=== PATIENT | female | born 1945 | race Hispanic/Latino ===

== ENCOUNTER 2021-02-01 19:49 | Inpatient (IN) | payer OTHER, MEDICARE ==
[~2021-02-01] VITALS: Ht 154.9 cm; Wt 60.8 kg
[2021-02-01] MEDS ORDERED: 0.9%NACL 1000ML 1,000 ML IV ONE (21:00)
[2021-02-01 21:47] LABS: BASOPHILS % (AUTO) 0.4 % (0.0-5.0); EOSINOPHILS % (AUTO) 1.6 % (0.0-8.0); HEMATOCRIT 27.2 % (36-48); LYMPHOCYTES % (AUTO) 27.1 % (21.0-51.0); MEAN CORPUSCULAR HEMOGLOBIN 27.5 pg (27.0-33.0); MEAN CORPUSCULAR HGB CONC 32.4 g/dL (32.0-36.0); MONOCYTES % (AUTO) 8.8 % (3.0-13.0); NEUTROPHILS % (AUTO) 61.7 % (40.0-77.0); PLATELET COUNT (AUTO) 183 K/uL (130-400); RED CELL DISTRIBUTION WIDTH 13.1 % (11.0-15.5); WHITE BLOOD COUNT (AUTO) 5.7 K/uL (4.8-10.8)
[2021-02-01 22:09] LABS: ALBUMIN 1.8 g/dL (3.5-5.0); BILIRUBIN,TOTAL 0.2 mg/dL (0.2-1.0); CREATININE 0.5 mg/dL (0.5-1.5); TOTAL PROTEIN, SERUM 4.5 g/dL (6.0-8.3)
[2021-02-01 22:12] LABS: POTASSIUM 2.3 mmol/L (3.5-5.1)
[2021-02-01] MEDS ORDERED: POTASSIUM CHLORIDE 10MEQ/100ML 10 MEQ/100 ML ML IV ONE (22:30)
[2021-02-01] MEDS ORDERED: POTASSIUM CHLORIDE 10MEQ/100ML 100 ML IV ONE (23:39)
[2021-02-01 23:59] LABS: APPEARANCE,URINE Turbid (CLEAR); BILIRUBIN,URINE Negative (NEGATIVE); COLOR,URINE Yellow (YELLOW); GLUCOSE, URINE (UA) >=1000 mg/dL (NEGATIVE); KETONES,URINE 40 mg/dL (NEGATIVE); LEUKOCYTE ESTERASE ,URINE Moderate (NEGATIVE); NITRATE,URINE Negative (NEGATIVE); OCCULT BLOOD,URINE Moderate (NEGATIVE); PROTEIN,URINE POS 2+ mg/dL (NEGATIVE)
[2021-02-02 00:13] LABS: BACTERIA,URINE Moderate /HPF (None Seen); WBC,URINE 26-50 /HPF (0-1)
[2021-02-02 00:16] LABS: YEAST,URINE BUDDING Moderate /HPF (None Seen)
[2021-02-02 00:17] LABS: SQUAMOUS EPITHELIAL CELL,UR Rare /HPF (0-2)
[2021-02-02 00:36] LABS: ABG OXYGEN SATURATION 45.8 % (95.0-99.0); BASE EXCESS,VENOUS BLOOD GAS -8.3 (-2.0-3.0); HCO3,VENOUS BLOOD GAS 17.6 (21.0-28.0); PCO2,VENOUS BLOOD GAS 38 (32-45); PH,VENOUS BLOOD GAS 7.289 (7.350-7.450)
[2021-02-02] MEDS ORDERED: NITROGLYCERIN 1GM OINT 1 INCH/1GM TD SCH (01:30)
[2021-02-02] MEDS ORDERED: ONDANSETRON 4MG INJ IV PRN (01:30)
[2021-02-02] MEDS ORDERED: MAGNESIUM 2GM PREMIX 50ML 50 ML IV PRN (01:30)
[2021-02-02] MEDS ORDERED: HYDRALAZINE 20MG/ML VIAL IV PRN (01:30)
[2021-02-02 01:57] LABS: CREATININE,URINE RANDOM 91 mg/dL (30-135); SODIUM,URINE RANDOM 62 mmol/l (40-220)
[2021-02-02] MEDS: LACTATED RINGERS 1000ML 1,000 ML IV SCH ×3 (02:34→21:42)
[2021-02-02] MEDS: CEFTRIAXONE 1G VIAL IV SCH (02:35)
[2021-02-02] MEDS ORDERED: ATOR40TA69 PO (05:24)
[2021-02-02] MEDS ORDERED: LOSA100T58 PO (05:24)
[2021-02-02] MEDS ORDERED: ASPI-1012 PO (05:24)
[2021-02-02] MEDS ORDERED: EMPA25TA PO (05:24)
[2021-02-02] MEDS ORDERED: FAMO20TA8 PO (05:24)
[2021-02-02] MEDS ORDERED: SERT-438 PO (05:24)
[2021-02-02] MEDS ORDERED: LEVO50CA4 PO (05:24)
[2021-02-02] MEDS ORDERED: CLOP75TA32 PO (05:24)
[2021-02-02] MEDS ORDERED: HYDR-3420 PO (05:24)
[2021-02-02 06:51] LABS: CREATININE 0.8 mg/dL (0.5-1.5); MAGNESIUM 2.1 mg/dL (1.80-2.40); PHOSPHORUS 3.3 mg/dL (2.5-4.9); POTASSIUM 3.4 mmol/L (3.5-5.1)
[2021-02-02 07:21] LABS: BASOPHILS % (AUTO) 0.5 % (0.0-5.0); LYMPHOCYTES % (AUTO) 19.4 % (21.0-51.0); MEAN CORPUSCULAR HEMOGLOBIN 26.8 pg (27.0-33.0); MEAN CORPUSCULAR HGB CONC 32.3 g/dL (32.0-36.0); MONOCYTES % (AUTO) 5.6 % (3.0-13.0); NEUTROPHILS % (AUTO) 73.3 % (40.0-77.0); PLATELET COUNT (AUTO) 299 K/uL (130-400); RED CELL DISTRIBUTION WIDTH 13.1 % (11.0-15.5); WHITE BLOOD COUNT (AUTO) 10.5 K/uL (4.8-10.8)
[2021-02-02] MEDS ORDERED: ASPIRIN 325MG TAB PO ONE (07:30)
[2021-02-02] MEDS ORDERED: ATORVASTATIN 40 MG TABLET PO ONE (07:30)
[2021-02-02] MEDS ORDERED: KCL 20 MEQ ERTAB PO ONE (07:30)
[2021-02-02 07:36] LABS: HEMOGLOBIN A1C 8.1 % (4.0-6.0)
[2021-02-02 08:20] VITALS: BP 192/92
[2021-02-02 08:23] LABS: RETICULOCYTE % (AUTO) 0.75 % (0.42-2.23)
[2021-02-02 08:32] LABS: % IRON SATURATION 10.5 % (22-44)
[2021-02-02] MEDS ORDERED: ENOXAPARIN SODIUM 40 MG/0.4 ML SYRINGE SQ SCH (09:00)
[2021-02-02] MEDS: FAMOTIDINE 20MG VIAL IV SCH (09:51)
[2021-02-02] MEDS: LISINOPRIL 10 MG TABLET PO SCH ×2 (09:51→09:53)
[2021-02-02] MEDS: METOPROLOL SUCCINATE 50 MG TAB.SR.24H PO SCH ×2 (09:51→09:53)
[2021-02-02] MEDS: NITROGLYCERIN 1GM OINT 1 INCH/1GM TD SCH ×2 (09:52→18:44)
[2021-02-02 11:06] LABS: POTASSIUM 3.9 mmol/L (3.5-5.1)
[2021-02-02 11:25] VITALS: BP 138/87
[2021-02-02] MEDS: INSULIN HUMULIN R 100 UNIT/ML 3ML SQ SCH ×2 (12:00→18:00)
[2021-02-02] MEDS: KCL 20 MEQ ERTAB PO SCH (13:30)
[2021-02-02] MEDS: LORAZEPAM 2 MG/ML 1 ML VIAL IVP SCH (13:30)
[2021-02-02] MEDS ORDERED: ASPIRIN 325MG TAB PO SCH (13:30)
[2021-02-02] MEDS: ATORVASTATIN 40 MG TABLET PO SCH ×2 (13:30→21:00)
[2021-02-02 15:10] VITALS: BP 91/60
[2021-02-02] MEDS: LIDOCAINE HCL-MPF 1% 2ML VIAL IV PRN ×2 (16:04→16:05)
[2021-02-02] MEDS: POTASSIUM CHLORIDE 20MEQ/100ML 100 ML IV PRN (16:04)
[2021-02-02 17:23] LABS: CREATININE 1.2 mg/dL (0.5-1.5); MAGNESIUM 2.4 mg/dL (1.80-2.40); POTASSIUM 4.3 mmol/L (3.5-5.1)
[2021-02-02 19:53] VITALS: BP 108/56
[2021-02-02 21:12] LABS: CREATININE 1.1 mg/dL (0.5-1.5); POTASSIUM 4.2 mmol/L (3.5-5.1)
[2021-02-02 23:53] VITALS: BP 109/58
[2021-02-03] VITALS (7 sets, daily range): BP systolic 129–193; BP diastolic 63–92
[2021-02-03] MEDS: CEFTRIAXONE 1G VIAL IV SCH (02:53)
[2021-02-03] MEDS: NITROGLYCERIN 1GM OINT 1 INCH/1GM TD SCH ×3 (02:54→17:43)
[2021-02-03] MEDS: INSULIN HUMULIN R 100 UNIT/ML 3ML SQ SCH ×5 (06:00→23:24)
[2021-02-03] MEDS: LACTATED RINGERS 1000ML 1,000 ML IV SCH ×3 (06:42→22:54)
[2021-02-03 08:49] LABS: BASOPHILS % (AUTO) 0.3 % (0.0-5.0); HEMATOCRIT 34.3 % (36-48); LYMPHOCYTES % (AUTO) 25.6 % (21.0-51.0); MEAN CORPUSCULAR HEMOGLOBIN 26.9 pg (27.0-33.0); MEAN CORPUSCULAR HGB CONC 32.7 g/dL (32.0-36.0); MEAN CORPUSCULAR VOLUME 82.5 fL (79-99); MONOCYTES % (AUTO) 7.4 % (3.0-13.0); NEUTROPHILS % (AUTO) 64.5 % (40.0-77.0); PLATELET COUNT (AUTO) 273 K/uL (130-400); RED BLOOD CELL COUNT(AUTO) 4.16 MIL/uL (4.00-5.50); RED CELL DISTRIBUTION WIDTH 13.3 % (11.0-15.5); WHITE BLOOD COUNT (AUTO) 8.6 K/uL (4.8-10.8)
[2021-02-03 08:58] LABS: CREATININE 0.9 mg/dL (0.5-1.5); POTASSIUM 3.9 mmol/L (3.5-5.1)
[2021-02-03] MEDS: LORAZEPAM 2 MG/ML 1 ML VIAL IVP SCH ×2 (10:16→16:49)
[2021-02-03] MEDS: ASPIRIN 81MG CHEW TAB PO SCH (10:27)
[2021-02-03] MEDS: LISINOPRIL 5 MG TABLET PO SCH (10:27)
[2021-02-03] MEDS: METOPROLOL SUCCINATE 50 MG TAB.SR.24H PO SCH (10:28)
[2021-02-03] MEDS: FAMOTIDINE 20MG VIAL IV SCH (10:29)
[2021-02-03] MEDS ORDERED: CLOPIDOGREL 75MG TAB PO ONE (11:00)
[2021-02-03] MEDS: CLOPIDOGREL 75MG TAB PO SCH (13:00)
[2021-02-03] MEDS: ATORVASTATIN 40 MG TABLET PO SCH ×2 (13:30→21:28)
[2021-02-03] MEDS: KCL 20 MEQ ERTAB PO SCH (13:30)
[2021-02-03] MEDS: HYDRALAZINE 20MG/ML VIAL IV PRN ×2 (16:51→23:23)
[2021-02-03] MEDS ORDERED: IOHEXOL 350 MG/ML 100ML INFUS..BTL IV ONE (17:52)
[2021-02-04] MEDS ORDERED: LORAZEPAM 2 MG/ML 1 ML VIAL IVP ONE (00:30)
[2021-02-04] MEDS: CEFTRIAXONE 1G VIAL IV SCH (01:28)
[2021-02-04] MEDS: NITROGLYCERIN 1GM OINT 1 INCH/1GM TD SCH ×3 (01:29→17:30)
[2021-02-04 03:43] VITALS: BP 121/59
[2021-02-04] MEDS: INSULIN HUMULIN R 100 UNIT/ML 3ML SQ SCH ×3 (05:54→18:00)
[2021-02-04 06:25] LABS: BASOPHILS % (AUTO) 0.5 % (0.0-5.0); EOSINOPHILS % (AUTO) 0.9 % (0.0-8.0); MEAN CORPUSCULAR HEMOGLOBIN 26.7 pg (27.0-33.0); MEAN CORPUSCULAR HGB CONC 32.5 g/dL (32.0-36.0); MONOCYTES % (AUTO) 6.6 % (3.0-13.0); NEUTROPHILS % (AUTO) 73.8 % (40.0-77.0); PLATELET COUNT (AUTO) 299 K/uL (130-400); RED BLOOD CELL COUNT(AUTO) 4.39 MIL/uL (4.00-5.50); RED CELL DISTRIBUTION WIDTH 13.2 % (11.0-15.5); WHITE BLOOD COUNT (AUTO) 10.4 K/uL (4.8-10.8)
[2021-02-04 06:52] LABS: CREATININE 0.8 mg/dL (0.5-1.5); POTASSIUM 3.5 mmol/L (3.5-5.1)
[2021-02-04 07:25] VITALS: BP 153/76
[2021-02-04] MEDS: FAMOTIDINE 20MG VIAL IV SCH (08:33)
[2021-02-04] MEDS: METOPROLOL SUCCINATE 50 MG TAB.SR.24H PO SCH (08:36)
[2021-02-04] MEDS: CLOPIDOGREL 75MG TAB PO SCH (08:36)
[2021-02-04] MEDS: ASPIRIN 81MG CHEW TAB PO SCH (08:38)
[2021-02-04] MEDS: LISINOPRIL 5 MG TABLET PO SCH (08:49)
[2021-02-04] MEDS: LORAZEPAM 0.5 MG TABLET PO SCH (09:00)
[2021-02-04] MEDS ORDERED: MEMANTINE HCL 5 MG TABLET PO SCH (10:00)
[2021-02-04] MEDS ORDERED: FLUOXETINE HCL 10 MG CAPSULE PO SCH (10:00)
[2021-02-04 11:25] VITALS: BP 91/33
[2021-02-04] MEDS: FLUOXETINE HCL 10 MG CAPSULE PO SCH (12:28)
[2021-02-04] MEDS: MEMANTINE HCL 5 MG TABLET PO SCH (12:29)
[2021-02-04] MEDS: LACTATED RINGERS 1000ML 1,000 ML IV SCH (14:57)
[2021-02-04 15:25] VITALS: BP 141/62
[2021-02-04 20:13] VITALS: BP 166/79
[2021-02-04] MEDS ORDERED: APIXABAN 5 MG TABLET PO SCH (21:00)
[2021-02-04] MEDS: ATORVASTATIN 40 MG TABLET PO SCH (21:49)
[2021-02-04 23:53] VITALS: BP 166/82
[2021-02-05] MEDS: NITROGLYCERIN 1GM OINT 1 INCH/1GM TD SCH ×3 (02:33→18:21)
[2021-02-05] MEDS: CEFTRIAXONE 1G VIAL IV SCH (02:33)
[2021-02-05 04:05] VITALS: BP 162/86
[2021-02-05] MEDS ORDERED: HEPARIN 25,000 UNITS/250ML D5W 250 ML IV SCH (05:30)
[2021-02-05] MEDS ORDERED: HEPARIN 5,000 UNIT VIAL SQ PRN (05:30)
[2021-02-05 05:32] VITALS: BP 159/78
[2021-02-05] MEDS: INSULIN HUMULIN R 100 UNIT/ML 3ML SQ SCH ×5 (06:00→23:57)
[2021-02-05 06:37] LABS: CREATININE 0.8 mg/dL (0.5-1.5); POTASSIUM 3.1 mmol/L (3.5-5.1)
[2021-02-05 06:41] LABS: INR 1.06 (0.85-1.15); PROTHROMBIN TIME 11.5 SEC (9.6-11.6)
[2021-02-05 06:42] LABS: PARTIAL THROMBOPLASTIN TIME 28.8 SEC (26.3-35.5)
[2021-02-05 07:44] VITALS: BP 171/77
[2021-02-05 08:16] LABS: MAGNESIUM 1.4 mg/dL (1.80-2.40)
[2021-02-05] MEDS: LORAZEPAM 0.5 MG TABLET PO SCH (09:00)
[2021-02-05] MEDS: LISINOPRIL 10 MG TABLET PO SCH (09:30)
[2021-02-05 10:48] VITALS: BP 163/88
[2021-02-05] MEDS: FAMOTIDINE 20MG VIAL IV SCH (10:56)
[2021-02-05 12:17] LABS: INR 1.11 (0.85-1.15)
[2021-02-05 13:03] LABS: PARTIAL THROMBOPLASTIN TIME 116.3 SEC (26.3-35.5)
[2021-02-05] MEDS: LORAZEPAM 2 MG/ML 1 ML VIAL IVP SCH (13:30)
[2021-02-05] MEDS: CLOPIDOGREL 75MG TAB PO SCH (13:42)
[2021-02-05] MEDS: METOPROLOL SUCCINATE 50 MG TAB.SR.24H PO SCH (13:42)
[2021-02-05] MEDS: ASPIRIN 81 MG EC TAB PO SCH (13:42)
[2021-02-05] MEDS: MEMANTINE HCL 5 MG TABLET PO SCH (13:42)
[2021-02-05] MEDS: FLUOXETINE HCL 10 MG CAPSULE PO SCH (13:43)
[2021-02-05 15:51] VITALS: BP 166/88
[2021-02-05 20:00] VITALS: BP 171/77
[2021-02-05] MEDS: ATORVASTATIN 40 MG TABLET PO SCH (20:39)
[2021-02-06] VITALS: BP 160/72
[2021-02-06] MEDS: CEFTRIAXONE 1G VIAL IV SCH (00:47)
[2021-02-06] MEDS: NITROGLYCERIN 1GM OINT 1 INCH/1GM TD SCH ×3 (00:47→17:05)
[2021-02-06 01:13] LABS: HEMATOCRIT 33.5 % (36-48); MEAN CORPUSCULAR HEMOGLOBIN 26.7 pg (27.0-33.0); MEAN CORPUSCULAR HGB CONC 33.4 g/dL (32.0-36.0); MEAN CORPUSCULAR VOLUME 79.8 fL (79-99); RED BLOOD CELL COUNT(AUTO) 4.2 MIL/uL (4.00-5.50)
[2021-02-06 01:19] LABS: CREATININE 0.9 mg/dL (0.5-1.5); POTASSIUM 3.2 mmol/L (3.5-5.1)
[2021-02-06 04:00] VITALS: BP 158/89
[2021-02-06] MEDS: INSULIN HUMULIN R 100 UNIT/ML 3ML SQ SCH ×3 (05:33→18:00)
[2021-02-06] MEDS ORDERED: HEPARIN 25,000 UNITS/250ML D5W 250 ML IV ONE (05:45)
[2021-02-06] MEDS: LIDOCAINE HCL-MPF 1% 2ML VIAL IV PRN (06:09)
[2021-02-06] MEDS: POTASSIUM CHLORIDE 20MEQ/100ML 100 ML IV PRN (06:10)
[2021-02-06] MEDS: LISINOPRIL 10 MG TABLET PO SCH (08:52)
[2021-02-06] MEDS: FLUOXETINE HCL 10 MG CAPSULE PO SCH (08:52)
[2021-02-06] MEDS: METOPROLOL SUCCINATE 50 MG TAB.SR.24H PO SCH (08:53)
[2021-02-06] MEDS: FAMOTIDINE 20MG VIAL IV SCH (08:53)
[2021-02-06] MEDS: CLOPIDOGREL 75MG TAB PO SCH (08:53)
[2021-02-06] MEDS: LORAZEPAM 0.5 MG TABLET PO SCH (08:53)
[2021-02-06] MEDS: MEMANTINE HCL 5 MG TABLET PO SCH (08:53)
[2021-02-06] MEDS: ASPIRIN 81 MG EC TAB PO SCH (08:53)
[2021-02-06 09:34] VITALS: BP 163/66
[2021-02-06 11:41] VITALS: BP 152/76
[2021-02-06] MEDS: LORAZEPAM 2 MG/ML 1 ML VIAL IVP SCH (13:30)
[2021-02-06 16:51] VITALS: BP 165/90
[2021-02-06 20:00] VITALS: BP 121/83
[2021-02-06] MEDS: ARIPIPRAZOLE 5 MG TABLET PO SCH (21:42)
[2021-02-06] MEDS: ATORVASTATIN 40 MG TABLET PO SCH (21:42)
[2021-02-07] VITALS (7 sets, daily range): BP systolic 132–178; BP diastolic 65–95
[2021-02-07] MEDS: INSULIN HUMULIN R 100 UNIT/ML 3ML SQ SCH ×5 (00:31→21:00)
[2021-02-07] MEDS: NITROGLYCERIN 1GM OINT 1 INCH/1GM TD SCH ×3 (01:42→17:43)
[2021-02-07] MEDS: CEFTRIAXONE 1G VIAL IV SCH (01:42)
[2021-02-07] MEDS: POTASSIUM CHLORIDE 20MEQ/100ML 100 ML IV PRN (05:45)
[2021-02-07] MEDS: LIDOCAINE HCL-MPF 1% 2ML VIAL IV PRN (05:46)
[2021-02-07] MEDS: LORAZEPAM 0.5 MG TABLET PO SCH (09:00)
[2021-02-07] MEDS: FAMOTIDINE 20MG VIAL IV SCH (09:10)
[2021-02-07] MEDS: MEMANTINE HCL 5 MG TABLET PO SCH (09:10)
[2021-02-07] MEDS: CLOPIDOGREL 75MG TAB PO SCH (09:11)
[2021-02-07] MEDS: LISINOPRIL 20 MG TABLET PO SCH (09:11)
[2021-02-07] MEDS: ASPIRIN 81 MG EC TAB PO SCH (09:11)
[2021-02-07] MEDS: FLUOXETINE HCL 20 MG CAPSULE PO SCH (09:11)
[2021-02-07] MEDS: METOPROLOL SUCCINATE 50 MG TAB.SR.24H PO SCH (09:11)
[2021-02-07] MEDS ORDERED: POLYETHYLENE GLYCOL 3350 17 GM POWD.PACK PO SCH (11:00)
[2021-02-07] MEDS: LACTULOSE 20 GM/30 ML UDCUP PO SCH ×3 (11:15→20:34)
[2021-02-07] MEDS: LORAZEPAM 2 MG/ML 1 ML VIAL IVP SCH (13:29)
[2021-02-07] MEDS: ARIPIPRAZOLE 5 MG TABLET PO SCH (20:33)
[2021-02-07] MEDS: ATORVASTATIN 40 MG TABLET PO SCH (20:33)
[2021-02-08] MEDS: CEFTRIAXONE 1G VIAL IV SCH (03:09)
[2021-02-08] MEDS: NITROGLYCERIN 1GM OINT 1 INCH/1GM TD SCH ×3 (03:09→17:27)
[2021-02-08 03:39] VITALS: BP 140/69
[2021-02-08 07:21] LABS: BASOPHILS % (AUTO) 0.4 % (0.0-5.0); EOSINOPHILS % (AUTO) 3.2 % (0.0-8.0); HEMATOCRIT 33.6 % (36-48); LYMPHOCYTES % (AUTO) 27.5 % (21.0-51.0); MEAN CORPUSCULAR HEMOGLOBIN 26.8 pg (27.0-33.0); MEAN CORPUSCULAR HGB CONC 32.7 g/dL (32.0-36.0); MEAN CORPUSCULAR VOLUME 81.8 fL (79-99); MONOCYTES % (AUTO) 9.3 % (3.0-13.0); NEUTROPHILS % (AUTO) 59.2 % (40.0-77.0); PLATELET COUNT (AUTO) 261 K/uL (130-400); RED BLOOD CELL COUNT(AUTO) 4.11 MIL/uL (4.00-5.50); RED CELL DISTRIBUTION WIDTH 13.2 % (11.0-15.5); WHITE BLOOD COUNT (AUTO) 6.9 K/uL (4.8-10.8)
[2021-02-08 07:29] LABS: CREATININE 0.7 mg/dL (0.5-1.5); POTASSIUM 3.6 mmol/L (3.5-5.1)
[2021-02-08] MEDS: INSULIN HUMULIN R 100 UNIT/ML 3ML SQ SCH ×4 (07:30→21:47)
[2021-02-08 08:00] VITALS: BP 161/74
[2021-02-08] MEDS: FLUOXETINE HCL 20 MG CAPSULE PO SCH (08:52)
[2021-02-08] MEDS: FAMOTIDINE 20MG VIAL IV SCH (08:52)
[2021-02-08] MEDS: ASPIRIN 81 MG EC TAB PO SCH (08:52)
[2021-02-08] MEDS: CLOPIDOGREL 75MG TAB PO SCH (08:53)
[2021-02-08] MEDS: LISINOPRIL 20 MG TABLET PO SCH (08:53)
[2021-02-08] MEDS: METOPROLOL SUCCINATE 50 MG TAB.SR.24H PO SCH (08:53)
[2021-02-08] MEDS: MEMANTINE HCL 5 MG TABLET PO SCH (08:54)
[2021-02-08] MEDS: LACTULOSE 20 GM/30 ML UDCUP PO SCH ×2 (09:00→21:42)
[2021-02-08] MEDS: LORAZEPAM 0.5 MG TABLET PO SCH (09:00)
[2021-02-08 11:50] VITALS: BP 161/74
[2021-02-08] MEDS: LORAZEPAM 2 MG/ML 1 ML VIAL IVP SCH (13:02)
[2021-02-08 16:00] VITALS: BP 175/83
[2021-02-08 19:12] VITALS: BP 131/66
[2021-02-08] MEDS: ARIPIPRAZOLE 5 MG TABLET PO SCH (21:42)
[2021-02-08] MEDS: ATORVASTATIN 40 MG TABLET PO SCH (21:42)
[2021-02-08 23:30] VITALS: BP 107/53
[2021-02-09] MEDS: CEFTRIAXONE 1G VIAL IV SCH (04:05)
[2021-02-09] MEDS: NITROGLYCERIN 1GM OINT 1 INCH/1GM TD SCH ×2 (04:49→11:35)
[2021-02-09 06:02] VITALS: BP 167/70
[2021-02-09] MEDS: INSULIN HUMULIN R 100 UNIT/ML 3ML SQ SCH ×2 (06:38→11:30)
[2021-02-09 08:00] VITALS: BP 110/86
[2021-02-09] MEDS: LORAZEPAM 0.5 MG TABLET PO SCH (09:00)
[2021-02-09] MEDS: LACTULOSE 20 GM/30 ML UDCUP PO SCH (09:00)
[2021-02-09] MEDS: FAMOTIDINE 20MG VIAL IV SCH (11:31)
[2021-02-09] MEDS: CLOPIDOGREL 75MG TAB PO SCH (11:32)
[2021-02-09] MEDS: ASPIRIN 81 MG EC TAB PO SCH (11:32)
[2021-02-09] MEDS: MEMANTINE HCL 5 MG TABLET PO SCH (11:33)
[2021-02-09] MEDS: FLUOXETINE HCL 20 MG CAPSULE PO SCH (11:33)
[2021-02-09] MEDS: METOPROLOL SUCCINATE 50 MG TAB.SR.24H PO SCH (11:38)
[2021-02-09] MEDS: LISINOPRIL 20 MG TABLET PO SCH (11:39)
[2021-02-09 12:00] VITALS: BP 179/88
[2021-02-09 14:50] VITALS: BP 132/64
== END 2021-02-09 15:15 | disposition hospice, home (50) | DRG 64 ==
LOC: EDH 19:49 → EDHIP 23:51 → 3BH 02-02 08:14
PROVIDERS: ADMIT Internal Medicine; ATTEND Internal Medicine
DX: I63.433 Cerebral infarction due to embolism of bilateral posterior cerebral arteries (principal); G93.41 Metabolic encephalopathy; E43 Unspecified severe protein-calorie malnutrition; I21.A1 Myocardial infarction type 2; N39.0 Urinary tract infection, site not specified; I69.351 Hemiplegia and hemiparesis following cerebral infarction affecting right dominant side; E87.1 Hypo-osmolality and hyponatremia; I16.1 Hypertensive emergency; I48.92 Unspecified atrial flutter; F32.1 Major depressive disorder, single episode, moderate; Z66 Do not resuscitate; E11.9 Type 2 diabetes mellitus without complications; E78.5 Hyperlipidemia, unspecified; E78.00 Pure hypercholesterolemia, unspecified; E83.42 Hypomagnesemia; E83.51 Hypocalcemia; E87.6 Hypokalemia; R29.724 NIHSS score 24; F03.90 Unspecified dementia, unspecified severity, without behavioral disturbance, psychotic disturbance, mood disturbance, and anxiety; G51.0 Bell's palsy; K21.9 Gastro-esophageal reflux disease without esophagitis; I10 Essential (primary) hypertension; I25.10 Atherosclerotic heart disease of native coronary artery without angina pectoris; I34.0 Nonrheumatic mitral (valve) insufficiency; Z68.25 Body mass index [BMI] 25.0-25.9, adult; Z95.1 Presence of aortocoronary bypass graft; Z79.01 Long term (current) use of anticoagulants; I25.2 Old myocardial infarction; I69.320 Aphasia following cerebral infarction; Z82.49 Family history of ischemic heart disease and other diseases of the circulatory system; Z83.3 Family history of diabetes mellitus; Z80.9 Family history of malignant neoplasm, unspecified
CPT/HCPCS: 36415; 36600; 70450; 70496; 70498; 70551; 71045; 80048; 80053; 81001; 82270; 82570; 82607; 82728; 82746; 82803; 82948; 83036; 83540; 83550; 83605; 83735; 83930; 83935; 84100; 84132; 84145; 84300; 84484; 85025; 85027; 85045; 85610; 85730; 87040; 87088; 92610; 93005; 93356; 93880; 96374; 97039; C8929; G0378; J0360; J0696; J1644; J1650; J1815; J2060; J3475; J3480; J3490; J7030; J7120; Q9967